=== PATIENT | male | born 1995 | race Caucasian/White ===

== ENCOUNTER 2021-09-09 08:47 | Outpatient (CLI) | payer BC ==
[2021-09-09 09:26] LABS: ALV-art Gradient -10.745 mmHg (0-20); Actual Bicarbonate (HCO3a) 22.2 mEq/L (22-28); Base Excess (BEa) 1.8 mEq/L (-2.0 to +3.0); CO2 Tension 25.5 mmHg (35.0-45.0); Calcium, Ionized (arterial) 1.22 mmol/L (1.12-1.30); Carboxyhemoglobin (COHb) 0.5 gm% (0.0-3.0); Hemoglobin (Hb) 16.5 g/dL (14.0-18.0); O2 Tension (PaO2), arterial 128.6 mmHg (80.0-100.0); Puncture Site RRA; pH, Arterial 7.56 (7.35-7.45)
== END 2021-09-09 08:48 | disposition home or self-care (01) ==
LOC: CSHRAD 08:47
PROVIDERS: ATTEND Specialist
DX: R06.02 Shortness of breath (principal)
CPT/HCPCS: 36600; 82805

== ENCOUNTER 2022-07-08 07:03 | Outpatient (CLI) | payer BC | END 2022-07-08 07:04 | disposition home or self-care (01) | LOC: CSHCP 07:03 | PROVIDERS: ATTEND Internal Medicine | DX: R06.09 Other forms of dyspnea (principal) | CPT/HCPCS: 94618 ==

== ENCOUNTER 2023-11-28 14:20 | Outpatient (CLI) | payer BC | END 2023-11-28 14:21 | disposition home or self-care (01) | LOC: CSHRAD 14:20 | PROVIDERS: ATTEND Neurological Surgery | DX: Q76.2 Congenital spondylolisthesis (principal) | CPT/HCPCS: 72100 ==